=== PATIENT | female | born 1990 | race Caucasian/White ===

== ENCOUNTER → 2021-02-07 | Outpatient (CLI) | payer OTHER ==
[~2021-02-07] MED LIST: COLACE 100MG C100 MG PO; IBUPROFEN600 MG PO; TRANDATE 200 M200 MG PO
== END ==
LOC: EXRD 01-26 13:30
DX: R80.9 Proteinuria, unspecified (principal)
CPT/HCPCS: 76775

== ENCOUNTER → 2022-01-08 | Outpatient (CLI) | payer OTHER | LOC: US 10:15 | DX: K76.0 Fatty (change of) liver, not elsewhere classified (principal) | CPT/HCPCS: 76705 ==